=== PATIENT | male | born 1975 | race Caucasian/White ===

== ENCOUNTER 2017-05-23 17:47 | Emergency (ER) | payer BC ==
[2017-05-23 17:56] VITALS: BP 153/91
--- OUTSIDE RECORDS SUMMARY | 2017-05-23 17:56 | XMS REPORT ---
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 Active Onset: 10/30/2016 Low back pain Nain Vargas M.D. Active Onset: 10/30/2016 Anxiety state Nain Vargas M.D. Active Onset: 10/30/2016 Inguinal hernia without obstruction Nain Vargas M.D. Active AND without gangrene Onset: 10/30/2016 Hypothyroidism Nain Vargas M.D. Active Onset: 10/30/2016 Psychogenic impotence Nain Vargas M.D. Active Social History Type Date Description Comments Cigarette Use Light tobacco smoker (10 or fewer cigarettes/day) Smoking Light tobacco smoker (10 or fewer cigarettes/day) Allergies, Adverse Reactions, Alerts Date Description Reaction Status Severity Comments 08/28/2016 NKDA active Medications Medication Date Status Form Strength Qnty SIG Indications Ordering Provider Note 04/25/ Active pt was seen M25.511 Lucila 2018 here today, Racquel, advised off [employer] work 04/20 through 04/25 , d/t injury will return 04/26/17 Work Excuse Active jacques Trinh 2017 return to [employer]! 03/19/17 M.D. with no restrictions Work Excuse 02/26/ Active can work Nian Miller 20 hours A marvin Vargas starting M.D. 02/28/17 Cymbalta 01/03/ Active Caps DR 30mg 30cap Take 1 Nain Miller Part s Capsule By Alicia Mouth Every M.D. Day Naprosyn 12/20/ Active Tablets 500mg 60tab 1 twice a day Nain Miller s with food Kacy Vargas Physical 10/30/ Active treatment and Nain Trinh Therapy 2016 evaluation of Alicia back pain M.DTres Viagra 10/30/ Active Tablets 50mg 6tabs Take 1 Tablet Nain Miller By Mouth 1 Alicia, Hour Prior To M.D. Sexual Relations Maximum Daily Dose Of 1 Tablet In 24 Hours Lorazepam 10/02/ Active Tablets 1mg 90tab take 1 tablet Nain Miller s by mouth Alicia, three times a M.D. day daily as needed - maximum daily dose of3 per day Chantix 08/28/ Active Tablets 1mg 60tab Take 1 Tablet Nain Miller s By Mouth Two Alicia, Times Daily M.DTres Levothyroxine / Active Tablets 125mcg 90tab 1 by mouth Nain Trinh Sodium 0000 s every day Kacy Vargas Janumet / Active Tablets 50-1000mg 60tab Take 1 Tablet Nain Trinh 0000 s By Mouth Two Alicia, Times Daily M.D. Gabapentin / Active Capsules 300mg 90cap Take 1 Nain Trinh 0000 s Capsule By Alicia Mouth Three M.D. Times Daily Tramadol HCL / Active Tablets 50mg 90tab Take One Nain Trinh 0000 s Tablet By Alicia Mouth Three M.D. Times Daily Maximum Daily Dose Of 3 Per Day Synthroid 03/12/ Hx Tablets 125mcg 90tab Take 1 Tablet Nain Trinh 2018 - s By Mouth Alicia, 03/17/ Every Day M.D. 2018 Work Note 02/16/ Hx out of work Nain Trinh 2017 - 02/12 to 02/16 Alicia 02/26/ can return M.D. 02/19 no restrictions Citalopram 01/25/ Hx Tablets 20mg 30tab Take 1 Tablet Nain Paganmide 2016 - s By Mouth Alicia, 03/17/ Every Day M.D. 2017 Work Excuse Hx unable to Nain Trinh 2016 - work from [facility], 01/10/17 to M.D. 201601/24/17 can return 01/25/17 Work Excuse will return Nain Trinh 2016 - to work no [facility], 12/26/ restrictions M.D. 201612/25/16 Citalopram 11/25/ Hx Tablets 10mg 30tab Take 1 Tablet Nain Saldivare 2016 s By Mouth Alicia, 01/03/ Every Day M.D. 2016 Work Note Hx out of work Nain Trinh 2016 - for 3 days Alicia, 12/12/ can return M.D. 201611/21/16 Citalopram 10/02/ Hx Tablets 20mg 30tab Take 1 Tablet Nain Saldivare 2016 - s By Mouth Alicia, 11/25/ Every Day M.D. 2016 Citalopram 08/28/ Hx Tablets 10mg 30tab 1 by mouth Nain Saldivare 2016 - every day Alicia, 10/02/ M.D. 2016 Alprazolam / Hx Tablets 0.5mg take one Nain Trinh 0000 - tablet by Alicia, 10/02/ mouth twice M.D. 2016 daily as needed for anxiety Chantix / Hx Tablets 1mg take 1 tablet Unknown Continuing 0000 - by mouth Month Emery 12/12/ twice a day 2016 Vital Signs Date Vital Result Comment 04/25/2017 BP Systolic 138 mmHg BP Diastolic 76 mmHg Heart Rate 84 /min Body Temperature 97.3 F Respiratory Rate 16 /min Weight 223.25 lb 03/17/2017 BP Systolic 146 mmHg BP Diastolic 84 mmHg Heart Rate 96 /min Body Temperature 98.1 F Respiratory Rate 20 /min Height 68 inches 5'8" Weight 230.25 lb BMI (Body Mass Index) 35.0 kg/m2 02/26/2017 BP Systolic 130 mmHg BP Diastolic 80 mmHg Heart Rate 90 /min Body Temperature 97.6 F Respiratory Rate 17 /min Height 68 inches 5'8" Weight 234.38 lb BMI (Body Mass Index) 35.6 kg/m2 01/24/2017 BP Systolic 156 mmHg BP Diastolic 80 mmHg Heart Rate 120 /min Body Temperature 98.6 F Respiratory Rate 16 /min Height 68 inches 5'8" Weight 232.12 lb BMI (Body Mass Index) 35.3 kg/m2 01/03/2017 BP Systolic 138 mmHg BP Diastolic 80 mmHg Heart Rate 90 /min Body Temperature 98.1 F Respiratory Rate 18 /min Height 68 inches 5'8" Weight 237.25 lb BMI (Body Mass Index) 36.1 kg/m2 12/12/2016 BP Systolic 148 mmHg BP Diastolic 72 mmHg Heart Rate 88 /min Body Temperature 98.2 F Height 68 inches 5'8" Weight 225.00 lb BMI (Body Mass Index) 34.2 kg/m2 10/30/2016 BP Systolic 120 mmHg BP Diastolic 80 mmHg Heart Rate 18 /min Body Temperature 98.0 F Respiratory Rate 18 /min Height 68 inches 5'8" Weight 220.00 lb BMI (Body Mass Index) 33.4 kg/m2 10/02/2016 BP Systolic 132 mmHg BP Diastolic 84 mmHg Heart Rate 80 /min Body Temperature 98.2 F Respiratory Rate 18 /min Height 68 inches 5'8" Weight 217.00 lb BMI (Body Mass Index) 33.0 kg/m2 08/28/2016 BP Systolic 144 mmHg BP Diastolic 92 mmHg Heart Rate 84 /min Body Temperature 99.0 F Respiratory Rate 18 /min Height 68 inches 5'8" Weight 209.00 lb BMI (Body Mass Index) 31.8 kg/m2 Results Test Date Test Result H/L Range Note Hemoglobin A1c 01/24/2017 Hemoglobin A1c 7.9 % High 4.8-5.6 1, 2 Hep C Virus Rna QNT 11/20/2016 Hepatitis C 6949262 IU/mL W/RFX Genotyping PCR Quantitation HCV log10 6.766 bxq92ES/mL Test Information: See Comment: 3 CBC With Differential/Platelet 11/20/2016 WBC 7.1 x10E3/uL 3.4-10.8 RBC 4.72 x10E6/uL 4.14-5.80 Hemoglobin 15.3 g/dL 12.6-17.7 Hematocrit 43.7 % 37.5-51.0 MCV 93 fL 79-97 MCH 32.4 pg 26.6-33.0 MCHC 35.0 g/dL 31.5-35.7 RDW 14.0 % 12.3-15.4 Platelets 131 x10E3/uL Low 150-379 Neutrophils 69 % Lymphs 26 % Monocytes 4 % Eos 1 % Basos 0 % Immature Cells TNP Neutrophils (Absolute) 4.9 x10E3/uL 1.4-7.0 Lymphs (Absolute) 1.9 x10E3/uL 0.7-3.1 Monocytes(Absolute) 0.3 x10E3/uL 0.1-0.9 Eos (Absolute) 0.1 x10E3/uL 0.0-0.4 Baso (Absolute) 0.0 x10E3/uL 0.0-0.2 Immature Granulocytes 0 % Immature Grans (Abs) 0.0 x10E3/uL 0.0-0.1 NRBC TNP Hematology Comments: TNP HCV Genotype 11/20/2016 HCV Genotype See Comment: Hepatitis C Genotype 1a Please note: See Comment: 4 Metabolic Panel (14), Comprehensive 10/30/2016 Glucose, Serum 151 mg/dL High 65-99 5 BUN 8 mg/dL 6-24 5 Creatinine, Serum 1.24 mg/dL 0.76-1.27 5 eGFR If NonAfricn Am 72 mL/min/1.73 >59 5 eGFR If Africn Am 83 mL/min/1.73 >59 5 BUN/Creatinine Ratio 6 Low 9-20 5 Sodium, Serum 139 mmol/L 134-144 5 Potassium, Serum 3.9 mmol/L 3.5-5.2 5 Chloride, Serum 97 mmol/L 96-106 5 Carbon Dioxide, Total 26 mmol/L 18-29 5 Calcium, Serum 9.3 mg/dL 8.7-10.2 5 Protein, Total, Serum 7.8 g/dL 6.0-8.5 5 Albumin, Serum 4.2 g/dL 3.5-5.5 5 Globulin, Total 3.6 g/dL 1.5-4.5 5 A/G Ratio 1.2 1.2-2.2 5 Bilirubin, Total 0.4 mg/dL 0.0-1.2 5 Alkaline Phosphatase, S 108 IU/L 39-117 5 Ast (Sgot) 36 IU/L 0-40 5 Alt (SGPT) 33 IU/L 0-44 5 Lipid Panel 10/30/2016 Cholesterol, Total 154 mg/dL 100-199 5 Triglycerides 158 mg/dL High 0-149 5 HDL Cholesterol 28 mg/dL Low >39 5 VLDL Cholesterol Charles 32 mg/dL 5-40 5 LDL Cholesterol Calc 94 mg/dL 0-99 5 Comment: TNP 5 Laboratory test finding 10/30/2016 TSH 0.974 uIU/mL 0.450-4.500 5 Thyroxine (T4) Free, Direct, S 1.59 ng/dL 0.82-1.77 5 Testosterone, Free And Total 10/30/2016 Testosterone, Serum 470 ng/dL 264 -916 5, 6 Free Testosterone(Direct) 9.8 pg/mL 6.8-21.5 5 Hemoglobin A1c 10/02/2016 Hemoglobin A1c 5.8 % High 4.8-5.6 7, 8 1 1LAV 2 Pre-diabetes: 5.7 - 6.4 Diabetes: >6.4 Glycemic control for adults with diabetes: <7.0 3 The quantitative range of this assay is 15 IU/mL to 100 million IU/mL. 4 This test was developed and its performance characteristics determined by [employer]. It has not been cleared or approved by the U.S. Food and Drug Administration. The FDA has determined that such clearance or approval is not necessary. This test is used for clinical purposes. It should not be regarded as investigational or for research. 5 2 sst 6 Adult male reference interval is based on a population of healthy nonobese males (BMI <30) between 19 and 39 years old. Samina, et.al. JCEM 2017,102;7865-8263. PMID: 24139111. 7 1lav 8 Pre-diabetes: 5.7 - 6.4 Diabetes: >6.4 Glycemic control for adults with diabetes: <7.0 Procedures Description No Information Encounters Type Date Location Provider CPT E/M Dx Office Visit 03/17/2017 10:20a Main Office Nain Vargas M.D. 43556 M54.5 Office Visit 02/26/2017 11:20a Main Office Nain Vargas M.D. 59792 M54.5 Office Visit 01/24/2017 1:20p Main Office Nain Vargas M.D. 40995 M54.5 E11.9 Office Visit 01/03/2017 1:20p Main Office Nain Vargas M.D. 91783 M54.5 Office Visit 12/20/2016 5:40p Main Office Nain Vargas M.D. 83477 M54.5 Office Visit 12/12/2016 2:20p [facility] Nain Vargas M.D. 22954 R10.11 M54.5 Office Visit 10/30/2016 8:00a Main Office Nain Vargas M.D. 11049 E11.9 M54.5 F41.9 K40.90 E03.9 F52.21 Office Visit 10/02/2016 1:00p Main Office Nain Vargas M.D. 74947 E11.9 Office Visit 08/28/2016 1:20p Main Office Nain Vargas M.D. 79559 E11.9 G56.03 M54.5 F41.9 F10.20 Plan of Care 04/25/2017 - Lucila Clement, Rolf-CM25.511 Pain in right shoulderNew Medication:NoteFollow up:Followup:. (Follow up)AllComments:~B_~U_Medication Management~b_~u_ Patient Understands medications he's taking? Yes No pt was advised to use either advil or naproxen , not both together Are there Barriers to Adherence? Yes No Has the patient been asked about herbal supplements and therapies, and OTC meds? Yes No ~B_~U_Care Plan~b_ ~u_1. Patient has been queried about patient's goals/preferences and functional /lifestyle goals at relevant visits. If relevant, describe: na2. Treatment goals as explained to the patient: abovesx resolution and further diagnostics 3. Are there barriers to meeting treatment goals? Yes No If Yes, please describe:declines further diagnostics at this time 4. Self-Management goals as described to the patient: Yes No continue naproxen bid , ok for local measures if not continued improvement or sx worsen , need to start eval
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
== END 2017-05-23 18:37 | disposition home or self-care (01) ==
LOC: UCEAST 17:47
DX: S46.011A Strain of muscle(s) and tendon(s) of the rotator cuff of right shoulder, initial encounter (principal); S66.911A Strain of unspecified muscle, fascia and tendon at wrist and hand level, right hand, initial encounter; X50.0XXA Overexertion from strenuous movement or load, initial encounter; Y92.9 Unspecified place or not applicable; F17.210 Nicotine dependence, cigarettes, uncomplicated
CPT/HCPCS: 99212; G0463

== ENCOUNTER 2017-05-29 17:12 | Emergency (ER) | payer BC ==
[2017-05-29 17:23] VITALS: BP 158/89
--- NOTE | 2017-05-29 20:42 | UC ---
Maya Dalton Nilda, scribed for Ignacio Vinson MD on 05/29/17 at 1812 . Shoulder Pain HPI - HPI Summary HPI Summary: This patient is a 42 year old M presenting to [facility] with a chief complaint of constant R-shoulder pain for past couple of weeks, for which he was seen here. Symptoms had resolved, but patient states that yesterday he lifted a box and felt slight pain. Today he feels better and came to have shoulder evaluated. Pain is currently 0/10. Symptoms aggravated by heavy lifting and alleviated by rest. - History of Current Complaint Chief Complaint: UCUpperExtremity Stated Complaint: SHOULDER AND WRIST INJURY Time Seen by Provider: 05/29/17 17:29 Hx Obtained From: Patient Onset/Duration: Sudden Onset, Lasting Weeks, Resolved Timing: Constant Severity Currently: None Location Of Pain: Is Discrete @ - R- shoulder Pain Intensity: 0 Pain Scale Used: 0-10 Numeric Aggravating Factor(s): Lifting Alleviating Factor(s): Rest Associated Signs And Symptoms: Negative: Swelling, Bruising - Allergies/Home Medications Allergies/Adverse Reactions: Allergies Allergy/AdvReac Type Severity Reaction Status Date / Time No Known Allergies Allergy Verified 08/13/14 10:12 Home Medications: Home Medications Sitagliptin Phos/Metformin HCl [Janumet 50-1,000 mg Tablet] 1 tab PO DAILY WITH MEAL 05/29/17 [History Confirmed 05/29/17] PMH/Surg Hx/FS Hx/Imm Hx Endocrine History: Thyroid Disease Neurological History: Migraine Psychological History: Anxiety Other History Of: Negative For: Anticoagulant Therapy - Surgical History Surgical History: Yes Surgery Procedure, Year, and Place: ADNOID REMOVAL - Family History Known Family History: Negative: Cardiac Disease, Hypertension - Social History Alcohol Use: None Substance Use Type: None Smoking Status (MU): Heavy Every Day Tobacco Smoker Type: Cigarettes Household Exposure Type: Cigarettes - Immunization History Most Recent Tetanus Shot: unknown by pt Review of Systems Respiratory: Other - negative SOB Musculoskeletal: Other: - R-shoulder pain (yesterday, now resolved) All Other Systems Reviewed And Are Negative: Yes Physical Exam - Summary Physical Exam Summary: VITAL SIGNS: Reviewed. GENERAL: Patient is a well developed and nourished M who is lying comfortable in the stretcher. Patient is not in any acute respiratory distress. HEAD AND FACE: Normocephalic EYES: PERRLA, EOMI x 2. EARS: Hearing grossly intact. MOUTH: Oropharynx within normal limits. NECK: Supple, trachea is midline, no adenopathy, no JVD, no carotid bruit. CHEST: Symmetric, no tenderness at palpation LUNGS: Clear to auscultation bilaterally. No wheezing or crackles. CVS: Regular rate and rhythm, S1 and S2 present, no murmurs or gallops appreciated. ABDOMEN: Soft, non-tender. Bowel sounds are normal. No abdominal abnormal pulsations. EXTREMITIES: Full ROM in all major joints, no edema, no cyanosis or clubbing. No ecchymosis or deformities of R-shoulder. NEURO: Alert and oriented x 3. No acute neurological deficits. Speech is normal and follows commands. SKIN: Dry and warm Triage Information Reviewed: Yes Vital Signs: Initial Vital Signs Temp 98 F 05/29/17 17:16 Pulse 84 05/29/17 17:16 Resp 18 05/29/17 17:16 BP 158/89 05/29/17 17:16 Pulse Ox 97 05/29/17 17:16 Vital Signs Reviewed: Yes Shoulder Course/Dx - Course Assessment/Plan: This patient is a 42 year old M presenting to [facility] with a chief complaint of constant R-shoulder pain for past couple of weeks, for which he was seen here. Symptoms had resolved, but patient states that yesterday he lifted a box and felt slight pain. Today he feels better and came to have shoulder evaluated. Pain is currently 0/10. Symptoms aggravated by heavy lifting and alleviated by rest. Medications reviewed. Allergies reviewed. I discussed all the findings and test results with the patient. Patient was instructed to return to the urgent care or go to ER immediately if any of the symptoms return or worsens. Plan of care was discussed with the patient, and patient understands and agrees. All questions were answered to patient satisfaction. There were no further complaints or concerns. The patient is hemodynamically stable, alert and oriented x3. The patient was found to have increase BP in UC. The patient will follow up with PCP for better control of BP. Patient will be D/C home with f/u with PCP. - Differential Dx/Diagnosis Provider Diagnoses: right shoulder pain Discharge - Sign-Out/Discharge Documenting (check all that apply): Discharge - Discharge Plan Condition: Stable Disposition: HOME Patient Education Materials: Arthralgia (ED) Forms: *Work Release Referrals: Nain Vargas MD [Primary Care Provider] - Additional Instructions: FOLLOW UP WITH YOUR PRIMARY CARE PROVIDER WITHIN ONE WEEK FOR HIGH BLOOD PRESSURE NOTED TODAY. Return to the urgent care or go to ER immediately if any of the symptoms return or worsens. - Billing Disposition and Condition Condition: STABLE Disposition: HOME The documentation as recorded by the Maya estes Nilda accurately reflects the service I personally performed and the decisions made by Karel gallegos Walter, MD.
== END 2017-05-29 18:05 | disposition home or self-care (01) ==
LOC: UCEAST 17:12
DX: M25.511 Pain in right shoulder (principal); E07.9 Disorder of thyroid, unspecified; G43.909 Migraine, unspecified, not intractable, without status migrainosus; F41.9 Anxiety disorder, unspecified; F17.210 Nicotine dependence, cigarettes, uncomplicated
CPT/HCPCS: 99211; G0463